=== PATIENT | male | born 1950 | race Caucasian/White ===

== ENCOUNTER → 2016-06-13 | Outpatient (CLI) | payer OTHER ==
[~2016-06-13] MED LIST: ALLO100T PO; AMOX875T PO; ASPCH81X PO; ASPI81TA28 PO; CZR50 PO; ERGO1CAP41 PO; FISHOIL PO; GADAVIST IV PRN; GLC/500 PO; GLC500 PO; INSDGI SC; INSDGIPEN SQ; INSU100I23 SC; INSU1INJ2 SC; INSUINJ14 SC; INSUINJ4 SC; LEVO125T4 PO; LEVO150T9 PO; LIRA18IN SC; LOSA50TA6 PO; NVLGIPEN SC; VYT/1020 PO; VYT1020 PO
--- NOTE | 2016-06-13 15:35 | DIAGNOSTIC IMAGING REPORT ---
MR VENOGRAM OF THE BRAIN CLINICAL HISTORY: Optic nerve edema. COMPARISON STUDY: CT of the brain dated 10/19/2012. FINDINGS: Noncontrast sagittal MR venogram of the brain is performed. 3-D reformats are created and assessed. IV contrast was not administered for this examination. FINDINGS: There is no MRI evidence of dural venous sinus thrombosis. The superior sagittal sinus is widely patent, as are the transverse and sigmoid sinuses. Normal flow voids are maintained in the internal jugular veins. The inferior sagittal sinus is clear, as are the straight sinus and vein of Fletcher. IMPRESSION: Unremarkable MR venogram of the brain. Electronically signed by: Kenroy Harvey M.D. 06/13/2016 3:33 PM Dictated Date/Time: 06/13/2016 3:31 PM
--- NOTE | 2016-06-13 16:37 | DIAGNOSTIC IMAGING REPORT ---
MRI OF THE BRAIN COMBO; MRI OF THE ORBITS COMBO CLINICAL HISTORY: Optic nerve edema. COMPARISON STUDY: CT of the brain dated 10/19/2012. TECHNIQUE: MRI of the brain was performed utilizing various T1 and T2-weighted sequences in the axial, sagittal, and coronal planes. Contrast-enhanced sequences were acquired following the administration of 13 cc of Gadavist. Additional high-resolution imaging through the bony orbits was performed both pre and postcontrast. FINDINGS: Brain parenchyma: There are scattered tiny foci of Endy radiopathic change within the subcortical and periventricular white matter. There is no hemorrhage or mass effect. There is no restricted diffusion to suggest acute ischemia. No enhancing mass lesion is identified on the postcontrast images. Bullard-white matter differentiation is preserved. No extra-axial fluid collection is seen. The cerebellar tonsils are normal in configuration. Ventricles, sulci, and cisterns: Normal in configuration. Pituitary and sella: Unremarkable. Intracranial vasculature: Normal flow voids are maintained at the skull base. Orbits: The bony orbits are grossly intact. The orbital contents are normal in appearance. There is no intra or extraconal mass lesion. The extraocular muscles are normal and symmetric. The optic nerves are normal in morphology and signal intensity. No abnormal enhancement is seen involving the optic nerves. Sinuses and mastoids: There is trace mucosal thickening within the maxillary antra and ethmoid sinuses. The remaining paranasal sinuses and the mastoid air cells are clear. Calvarium: Unremarkable. Cervical cord: Partially visualized cervical spinal cord is normal in morphology and signal intensity. IMPRESSION: 1. No acute intracranial abnormality. 2. Unremarkable MRI assessment of the orbits. Electronically signed by: Kenroy Harvey M.D. 06/13/2016 4:35 PM Dictated Date/Time: 06/13/2016 4:30 PM
== END | disposition home or self-care (01) ==
LOC: C.MRI 14:31
PROVIDERS: ATTEND Ophthalmology
DX: H47.10 Unspecified papilledema (principal)

== ENCOUNTER 2016-08-10 22:25 | Emergency (ER) | payer OTHER ==
[~2016-08-10] VITALS: Ht 170.2 cm; Wt 144.2 kg
[~2016-08-10 22:25] MED LIST changes: -GADAVIST IV PRN; -INSDGI SC; -INSDGIPEN SQ; -INSU100I23 SC; -LEVO150T9 PO; -NVLGIPEN SC
[2016-08-10 22:29] VITALS: TEMP 36.6; Ht 170.2 cm; Wt 144.2 kg
[2016-08-10] MEDS ORDERED: LIDOCAINE HCL 2% JELLY 30 ML TUBE EXT ONE (23:32)
[2016-08-11] MEDS ORDERED: INSDGIPEN SQ (00:12)
[2016-08-11 00:19] VITALS: BP 137/71; PULSE 87; O2SAT 94
--- NOTE | 2016-08-11 05:04 | EMERGENCY ROOM VISIT NOTE ---
ED Visit Note First contact with patient: 23:49 CHIEF COMPLAINT: Leg abrasions that was work-related HISTORY OF PRESENT ILLNESS: This 65-year-old patient presents to the emergency department with friend after falling at work that was work-related sustaining abrasions to his lower legs. The bleeding has stopped. Denies weakness or numbness of the extremity. patient has full range of motion of the extremity The patient rates the pain as mild and 2/10. The patient denies any other injuries. The patient's tetanus shot is up to date. REVIEW OF SYSTEMS: A 6 system review of systems was completed with positives and pertinent negatives listed in the HPI. ALLERGIES: None MEDICATIONS: Reviewed PMH: Diabetes SOCIAL HISTORY: No drug use PHYSICAL EXAM: Vital Signs: Reviewed Nurse's notes, vital signs stable. GENERAL : Pleasant male, in no acute distress, well developed, well nourished. SKIN: There multiple superficial abrasions to bilateral lower legs. No signs of infection. Bilateral legs with full range of motion of the hip, knee and ankle are nontender to palpation. Sensation is intact. There is no foreign material in the wounds and it looks clean. There is no bleeding. No deep structures such as tendons, bones, or significant blood vessels are seen in the base of the wounds. Extension and flexion of the extremity is full and strong. Full range of motion of the extremity. Capillary refill less than 2 seconds. Normal sensation to light and sharp touch. EMERGENCY DEPARTMENT COURSE: I examined the patient. Wounds are cleansed and dressed by nursing. Work-related injury paperwork was filled out and given the fact patient. He was counseled on wound care. He is advised follow-up family medicine in a few days or here in the ER sooner for fevers, drainage, redness, worsening signs or symptoms or as needed. Patient was neurovascularly and neurologically intact. No other injuries are noted. The patient was discharged home in good condition. Differential diagnosis includes abrasion, fracture, laceration, tendon injury, vascular injury and other etiologies were considered. DIAGNOSIS: Bilateral leg abrasions that is a work-related injury DISCHARGE INSTRUCTIONS & TREATMENT: As below Problem List Medical Problems: (1) Diabetes mellitus Status: Chronic Current/Historical Medications Scheduled Aspirin (Aspirin Chewable), 81 MG PO QAM Ergocalciferol (Vitamin D 89642 Unit), 1 TAB PO WK Ezetimibe/Simvastatin (Vytorin 10-20 mg), 1 TAB PO QPM Insulin Glargine (Lantus Solostar), 40 UNITS SQ AMPM Levothyroxine Sodium (Levothyroxine Sodium), 1 TAB PO QAM Liraglutide (Victoza), 1 DOSE SC QAM Losartan Potassium (Cozaar), 50 MG PO QAM Metformin Hcl (Glucophage), 1,000 MG PO BID Allergies Coded Allergies: No Known Allergies (Verified , 08/10/16) Vital Signs Date Time Temp Pulse Resp B/P Pulse Ox O2 Delivery O2 Flow Rate FiO2 08/11/16 00:19 87 18 137/71 94 08/10/16 22:29 36.6 92 18 177/85 95 Room Air Medications Administered Medications (Trade) Dose Ordered Sig/Valdemar Route Start Time Stop Time Status Last Admin Dose Admin Lidocaine HCl (Xylocaine Jelly 2%) 30 ml STK-MED ONCE EXT 08/10/16 23:32 08/10/16 23:35 DC 08/10/16 23:32 30 ML Departure Information Impression Primary Impression: Leg abrasion Additional Impression: Work related injury Dispostion Home / Self-Care Condition GOOD Forms HOME CARE DOCUMENTATION FORM, IMPORTANT VISIT INFORMATION Patient Instructions Formerly [facility], [facility], ED Abrasion Additional Instructions Antibiotic ointment and bandage to the areas until healed. Follow up with family doctor or return for any signs of infection (increasing redness, swelling , drainage, or fever). Keep covered when in sun until fully healed then SPF 50 or higher until scar healed. Problem Qualifiers
[2016-08-24] MEDS ORDERED: INSDGI SC (12:39)
== END 2016-08-11 00:19 | disposition home or self-care (01) ==
LOC: C.EDB 22:26 → C.EDD 08-11 00:19
DX: S80.811A Abrasion, right lower leg, initial encounter (principal); S80.812A Abrasion, left lower leg, initial encounter; W19.XXXA Unspecified fall, initial encounter; Y99.0 Civilian activity done for income or pay; Z79.82 Long term (current) use of aspirin; E11.9 Type 2 diabetes mellitus without complications

== ENCOUNTER → 2016-08-24 | Day surgery (SDC) | payer BC, OTHER ==
[2016-08-10 10:46] VITALS: Ht 172.7 cm; Wt 136.4 kg
[~2016-08-24] VITALS: Ht 172.7 cm; Wt 136.4 kg
[~2016-08-24] MED LIST changes: -AMOX875T PO; -ASPI81TA28 PO; -CZR50 PO; -ERGO1CAP41 PO; +ERGO500011 PO; +FENTANYL CITRATE INJ 50 MCG/1 ML 2 ML VIAL ONE; -FISHOIL PO; -GLC500 PO; +INSDGI SC; +INSDGIPEN SQ; +INSU100I23 SC; -INSU1INJ2 SC; -INSUINJ14 SC; -INSUINJ4 SC; -LEVO125T4 PO; +LEVO125T5 PO; +LEVO150T9 PO; +LIDOCAINE HCL 2% 2 ML VIAL (20MG/ML) ONE; +NVLGIPEN SC; +PROPOFOL IV EMULSION 10 MG/ML 20 ML VIAL IV ONE; -VYT/1020 PO
--- NOTE | 2016-08-24 12:55 | Endo History and Physical ---
History & Physical Date of Service: Aug 24, 2016. Chief Complaint: screening Referring Physician: Dr. Kei Coreas History of Present Illness For colonoscopy Past Medical History Diabetes, Arthritis, Reflux, High Cholesterol, Hypertension Past Surgical History Hx Cardiac Surgery: No Hx Internal Defibrillator: No Hx Pacemaker: No Hx Abdominal Surgery: Yes (UMBILICAL HERNIA REPAIR, HIATAL HERNIA) Hx of Implantable Prosthesis: No Hx Post-Op Nausea and Vomiting: No Hx Cancer Surgery: No Hx Thoracic Surgery: No Hx Orthopedic: Yes (LEFT/RT KNEE ARTHROSCOPY) Hx Urinary Tract Surgery: No Family History None Social History Smoking Status: Never Smoker Hx Substance Use: No Hx Alcohol Use: No Allergies Coded Allergies: No Known Allergies (Verified , 08/10/16) Current Medications Reported Home Medications Medications Dose Route/Sig Max Daily Dose Days Date Category Dose Instructions Lantus (Insulin Glargine) 100 Unit/Ml Inj 40 SC AMPM 08/24/16 Reported Vitamin D 29675 Unit (Ergocalciferol) 50,000 Unit Cap 1 Tab PO WK 08/10/16 Reported EVERY SATURDAY Levothyroxine Sodium 125 Mcg Tab 1 Tab PO QAM 90 08/10/16 Reported Cozaar (Losartan Potassium) 50 Mg Tab 50 Mg PO QAM 08/10/16 Reported Aspirin Chewable (Aspirin) 81 Mg Chew 81 Mg PO QAM 08/10/16 Reported Victoza (Liraglutide) 18 Mg/3 Ml Inj 1 Dose SC QAM 08/10/16 Reported Vytorin 10-20 mg (Ezetimibe/Simvastatin) 1 Tab Tab 1 Tab PO QPM 08/10/16 Reported Glucophage (Metformin Hcl) 500 Mg Tab 1,000 Mg PO BID 08/10/16 Reported Vital Signs Weight (Kilograms): 136.36 Height (Feet): 5 Height (Inches): 8 Date Time Temp Pulse Resp B/P Pulse Ox O2 Delivery O2 Flow Rate FiO2 08/24/16 12:39 36.5 72 20 158/78 97 Room Air Physical Exam General Appearance: + obese Respiratory/Chest: Respiratory effort: no dyspnea Cardiovascular: Heart Auscultation: RRR Abdomen: Inspection & Palpation: soft Assessment and Plan For screening colonoscopy
--- NOTE | 2016-08-24 13:25 | Discharge Instructions ---
Endoscopy Patient Instructions Date / Procedure(s) Performed Aug 24, 2016. Colonoscopy Allergy Information Coded Allergies: No Known Allergies (Verified , 08/24/16) Discharge Date / Findings Aug 24, 2016. Diverticulosis, hemorrhoids, polyps Medication Instructions Stopped Medication(s): took ASA yesterday Restart Stopped Medication(s): resume meds Reported Home Medications Medications Dose Route/Sig Max Daily Dose Days Date Category Dose Instructions Lantus (Insulin Glargine) 100 Unit/Ml Inj 40 SC AMPM 08/24/16 Reported Vitamin D 46714 Unit (Ergocalciferol) 50,000 Unit Cap 1 Tab PO WK 08/10/16 Reported EVERY SATURDAY Levothyroxine Sodium 125 Mcg Tab 1 Tab PO QAM 90 08/10/16 Reported Cozaar (Losartan Potassium) 50 Mg Tab 50 Mg PO QAM 08/10/16 Reported Aspirin Chewable (Aspirin) 81 Mg Chew 81 Mg PO QAM 08/10/16 Reported Victoza (Liraglutide) 18 Mg/3 Ml Inj 1 Dose SC QAM 08/10/16 Reported Vytorin 10-20 mg (Ezetimibe/Simvastatin) 1 Tab Tab 1 Tab PO QPM 08/10/16 Reported Glucophage (Metformin Hcl) 500 Mg Tab 1,000 Mg PO BID 08/10/16 Reported Provider Instructions Activity Restrictions - No exercising or heavy lifting for 24 hours. - Do not drink alcohol the day of the procedure. - Do not drive a car or operate machinery until the day after the procedure. - Do not make any important decisions or sign important papers in 24 hours after the procedure. Following Day: - Return to full activity which may include returning to work/school. Diet Start your diet with liquids and light foods (jello, soup, juice, toast). Then eat your usual diet if not nauseated. Treatment For Common After Affects For mild abdominal pain, bloating, or excessive gas: - Rest - Eat lightly - Lie on right side Follow-Up Information Follow-up with Dr. Kei Coreas as scheduled Anesthesia Information What You Should Know You have had a procedure that required some medicine to reduce anxiety and discomfort. This treatment is called moderate sedation. After receiving the treatment, you may be sleepy, but you will be able to breathe on your own. The effects of the treatment may last for several hours. Follow these instructions along with Activity/Diet recommendations noted above: * Do NOT do anything where dizziness or clumsiness would be dangerous. * Rest quietly at home today, then you can be up and about tomorrow. * Have a responsible person stay with you the rest of today. * You may have had an I.V. today. If so, you may take the dressing off later today. Recommendations Call your doctor if: * Trouble breathing * Continuous vomiting for more than 24 hours * Temperature above 101 degrees * Severe abdominal pain or bloating * Pain not relieved by pain medicine ordered * There is increased drainage or redness from any incision * A large amount of rectal bleeding greater than 2-3 tablespoons. (If you had a polyp/s removed or have hemorrhoids, a small amount of blood - from the rectum is to be expected.) * You have any unanswered questions or concerns. IN THE EVENT OF A SERIOUS EMERGENCY, GO TO THE NEAREST EMERGENCY ROOM Your discharge instructions were prepared by provider Shantanu Christensen. Patient Instructions Signature Page Steffen Bell Patient (or Guardian) Signature/Date: I have read and understand the instructions given to me by my caregivers. Caregiver/RN/Doctor Signature/Date: The above-named patient and/or guardian has received patient instructions on this date. + Original Patient Signature Page (only) stays with chart. Please make copy for patient.
--- NOTE | 2016-08-24 13:36 | GI REPORT ---
Procedure Date: 08/24/2016 12:55 PM Procedure: Colonoscopy Indications: Screening for colorectal malignant neoplasm Medicines: Propofol total dose 200 mg IV, Fentanyl 100 micrograms IV, Lidocaine 40 mg IV Complications: No immediate complications. Estimated Blood Loss: Estimated blood loss was minimal. Procedure: Pre-Anesthesia Assessment: - Prior to the procedure, a History and Physical was performed, and patient medications, allergies and sensitivities were reviewed. The patient's tolerance of previous anesthesia was reviewed. - The risks and benefits of the procedure and the sedation options and risks were discussed with the patient. All questions were answered and informed consent was obtained. After I obtained informed consent, the scope was passed under direct vision. Throughout the procedure, the patient's blood pressure, pulse, and oxygen saturations were monitored continuously. The scope was introduced through the anus and advanced to the cecum, identified by appendiceal orifice and ileocecal valve. The colonoscopy was somewhat difficult due to significant looping. Successful completion of the procedure was aided by applying abdominal pressure. The patient tolerated the procedure well. The quality of the bowel preparation was good. Findings: A 4 mm polyp was found in the transverse colon. The polyp was sessile. The polyp was removed with a cold snare. Resection and retrieval were complete. Estimated blood loss was minimal. A 4 mm polyp was found at the splenic flexure. The polyp was sessile. The polyp was removed with a cold snare. Resection and retrieval were complete. Estimated blood loss was minimal. Non-bleeding internal hemorrhoids were found during endoscopy. The hemorrhoids were moderate. Multiple diverticula were found in the sigmoid colon. Impression: - One 4 mm polyp in the transverse colon, removed with a cold snare. Resected and retrieved. - One 4 mm polyp at the splenic flexure, removed with a cold snare. Resected and retrieved. - Non-bleeding internal hemorrhoids. - Diverticulosis in the sigmoid colon. Recommendation: - Discharge patient to home (ambulatory). - Continue present medications. - Await pathology results. - Return to primary care physician PRN. Shantanu Christensen M.D. Shantanu Christensen MD 08/24/2016 1:36:39 PM This report has been signed electronically. Note Initiated On: 08/24/2016 12:55 PM I attest to the content of the Intraoperative Record and orders documented therein, exceptions below
--- NOTE | 2016-08-24 13:56 | Anesthesiology Progress Note ---
Anesthesia Post Op Note Date & Time Aug 24, 2016 at 13:56 Vital Signs Pain Intensity: 0 Vital Signs Past 12 Hours Date Time Temp Pulse Resp B/P Pulse Ox O2 Delivery O2 Flow Rate FiO2 08/24/16 13:40 68 18 140/69 97 Room Air 08/24/16 13:22 69 18 109/41 97 Room Air 08/24/16 12:39 36.5 72 20 158/78 97 Room Air Notes Mental Status: alert / awake / arousable, participated in evaluation Pt Amnestic to Procedure: Yes Nausea / Vomiting: adequately controlled Pain: adequately controlled Airway Patency, RR, SpO2: stable & adequate BP & HR: stable & adequate Hydration State: stable & adequate Anesthetic Complications: no major complications apparent Pt doing well.
[2016-08-24 14:05] VITALS: BP 129/86; PULSE 68; O2SAT 98
== END | disposition home or self-care (01) ==
LOC: C.GI 12:08
PROVIDERS: ATTEND Internal Medicine Gastroenterology
DX: Z12.11 Encounter for screening for malignant neoplasm of colon (principal); D12.3 Benign neoplasm of transverse colon; K64.8 Other hemorrhoids; K57.30 Diverticulosis of large intestine without perforation or abscess without bleeding

== ENCOUNTER 2016-12-30 00:58 | Emergency (ER) | payer OTHER ==
[~2016-12-30] VITALS: Ht 172.7 cm; Wt 141.4 kg
[~2016-12-30 00:58] MED LIST changes: -ALLO100T PO; +ERGO1CAP41 PO; -ERGO500011 PO; -FENTANYL CITRATE INJ 50 MCG/1 ML 2 ML VIAL ONE; -INSDGIPEN SQ; -INSU100I23 SC; +LEVO125T4 PO; -LEVO125T5 PO; -LEVO150T9 PO; -LIDOCAINE HCL 2% 2 ML VIAL (20MG/ML) ONE; -NVLGIPEN SC; -PROPOFOL IV EMULSION 10 MG/ML 20 ML VIAL IV ONE
[2016-12-30 01:03] VITALS: TEMP 36.9; Ht 172.7 cm; Wt 141.4 kg
[2016-12-30] MEDS ORDERED: LEVO150T9 PO (01:55)
[2016-12-30] MEDS ORDERED: ALLO100T PO (01:57)
[2016-12-30] MEDS ORDERED: NVLGIPEN SC (01:58)
[2016-12-30] MEDS ORDERED: INSU100I23 SC (01:59)
--- NOTE | 2016-12-30 02:25 | EMERGENCY ROOM VISIT NOTE ---
History Report prepared by Isac: Magdaleno Sher Under the Supervision of: Dr. Allyson Anderson D.O. First contact with patient: 01:14 Chief Complaint: HYPOGLYCEMIA Stated Complaint: HYPOGLYCEMIA Nursing Triage Summary: pt brought to ed via ems from home. pts girlfriend woke up to pt laying in bed cold and diaphoretic. she checked his sugar and it was 54. oral glucose given. when ems arrived bsg was 44 250ml d10 given then bsg increased to 114. pt reports his bsg was 112 last night nad he took his metformin and night time insulin. pt denies any symptoms at present. History of Present Illness The patient is a 66 year old male who presents to the Emergency Room by EMS with complaints of resolved hypoglycemia beginning shortly prior to arrival. Per nursing notes, the patient's girlfriend woke up and noticed that the patient appeared cold and diaphoretic in bed. She checked his blood sugar and found it to be 54. EMS noted the patient's blood sugar to be 44 on scene. The patient was given oral glucose, as well as D10 en route which have improved his blood sugar. His BSG upon arrival was 109. The patient states that he took his daily long-acting insulin shot when his blood sugar was 112 tonight, which he believes resulted in his hypoglycemia. He took his Metformin as normal tonight. Per girlfriend, the patient took his Novolog shot several hours after eating, and then took his long acting insulin shot immediately before going to bed. She states that the patient had some problems speaking when she initially woke him up. The patient states that he currently feels normal. He denies any recent changes to his medication. He denies any chest pain, nausea, headache, or abdominal pain. Source of History: patient Onset: Shortly prior to arrival Symptom Intensity: BSG of 44 Quality: other (hypoglycemia) Timing: resolved Modifying Factors (Relieving): other (oral glucose and D10) Associated Symptoms: + diaphoresis, No headache, No chest pain, No nausea, No abdominal pain Review of Systems See HPI for pertinent positives & negatives. A total of 10 systems reviewed and were otherwise negative. Past Medical & Surgical Medical Problems: (1) Cellulitis and abscess of lower extremity (2) Diabetes mellitus Family History No pertinent family history stated. Social History Smoking Status: Never Smoker Alcohol Use: none Drug Use: none Marital Status: , in relationship Housing Status: lives with family Occupation Status: employed Current/Historical Medications Scheduled Allopurinol (Zyloprim), 100 MG PO DIRECTED Aspirin (Aspirin Chewable), 81 MG PO QAM Ergocalciferol (Vitamin D 46767 Unit), 1 TAB PO WK Ezetimibe/Simvastatin (Vytorin 10-20 mg), 1 TAB PO QPM Insulin Aspart (Novolog Flexpen), Unknown Dose SC DIRECTED Insulin Glargine (Lantus), 45 SC AMPM Insulin Glargine (Basaglar Kwikpen), Unknown Dose SC DIRECTED Levothyroxine Sodium (Levothyroxine Sodium), 1 TAB PO DAILY Liraglutide (Victoza), 1 DOSE SC QAM Losartan Potassium (Cozaar), 50 MG PO QAM Metformin Hcl (Glucophage), 1,000 MG PO BID Allergies Coded Allergies: No Known Allergies (Verified , 12/30/16) Physical Exam Vital Signs Date Time Temp Pulse Resp B/P (MAP) Pulse Ox O2 Delivery O2 Flow Rate FiO2 12/30/16 02:42 75 20 138/69 96 12/30/16 01:47 83 16 151/58 96 Room Air 12/30/16 01:40 73 16 153/64 96 Room Air 83 151/58 75 160/69 12/30/16 01:03 71 12/30/16 01:03 36.9 78 20 134/61 96 Room Air Physical Exam GENERAL: Obese, alert, well appearing, well nourished, no distress, non-toxic EYE EXAM: normal conjunctiva, PERRL and EOM's grossly intact OROPHARYNX: no exudate, no erythema, lips, buccal mucosa, and tongue normal and mucous membranes are moist. Poor dentition. NECK: supple, no nuchal rigidity, no adenopathy, non-tender LUNGS: Clear to auscultation. Normal chest wall mechanics HEART: no murmurs, S1 normal and S2 normal ABDOMEN: abdomen soft, non-tender, normo-active bowel sounds, no masses, no rebound or guarding. BACK: Back is symmetrical on inspection and there is no deformity, no midline tenderness, no CVA tenderness. SKIN: no rashes and no bruising UPPER EXTREMITIES: upper extremities are grossly normal. LOWER EXTREMITIES: No pitting edema. NEURO EXAM: Normal sensorium, cranial nerves II-XII grossly intact, normal speech, no gross weakness of arms, no gross weakness of legs. Medical Decision & Procedures Laboratory Results Test 12/30/16 01:41 Bedside Glucose 107 mg/dl (70-99) Laboratory results per my review. ECG Indication: other (hypoglycemia) Rate (beats per minute): 74 Rhythm: normal sinus Findings: no acute ischemic change, no ectopy, other (Normal axis. Normal intervals. ) ED Course 0126: The patient was evaluated in room B7. A complete history and physical exam was performed. 0235: Upon reevaluation, the patient is feeling better. I discussed the findings and the treatment plan with the patient. He verbalizes agreement and understanding. The patient was discharged home. Medical Decision Differential diagnosis includes but is not limited to: hypoglycemia, medication reaction, stroke, dysrhythmia, seizure, electrolyte abnormality, and infection. Patient ate at an abnormal time and then took his usual insulin from supper closer to bedtime without having any additional snack. Patient's level mentation improved once his hypoglycemia was corrected. Patient has a baseline here now according to family. Patient with a normal nonfocal neurologic exam at bedside, and no complaints. EKG orthostatics reassuring. Did not feel patient warranted additional neuro imaging or evaluation for stroke. Likely patient's symptoms related to his hypoglycemic event. Discussed close follow-up , use of medications, adequate oral intake, risk factors for being a diabetic, symptoms to watch and return for, he and family at bedside verbalized understanding were agreeable with plan. Impression Primary Impression: Hypoglycemia Scribe Attestation The scribe's documentation has been prepared under my direction and personally reviewed by me in its entirety. I confirm that the note above accurately reflects all work, treatment, procedures, and medical decision making performed by me. Departure Information Dispostion Home / Self-Care Referrals No Doctor, Assigned (PCP) Patient Instructions My [facility] Additional Instructions Please take your medications as prescribed. Please check your blood sugar regularly and eat and drink at regular intervals. If you develop any recurrent episodes of low blood sugar, develop escalating or high blood sugar, feel dizzy or lightheaded, headaches, develop nausea or vomiting, chest pain, trouble breathing, or you've any other new or concerning symptoms, please return to the ER immediately.
[2016-12-30 02:42] VITALS: BP 138/69; PULSE 75; O2SAT 96
== END 2016-12-30 02:50 | disposition home or self-care (01) ==
LOC: EDBD 00:58 → C.EDB 00:59
DX: E16.2 Hypoglycemia, unspecified (principal); E11.9 Type 2 diabetes mellitus without complications; Z79.82 Long term (current) use of aspirin; Z79.4 Long term (current) use of insulin

== ENCOUNTER → 2017-06-15 | Outpatient (CLI) | payer OTHER ==
[~2017-06-15] MED LIST changes: +ALLO100T PO; -ERGO1CAP41 PO; +ERGO500011 PO; +INSU100I23 SC; -LEVO125T4 PO; +LEVO150T9 PO; +NVLGIPEN SC
--- NOTE | 2017-06-16 05:36 | PAP/PSG TECHNICIAN REPORT ---
[facility] Neuroradiologist Polysomnogram Report Study name: None Report date: 06/16/2017 Study date: 06/15/2017 Referring Physician: Alfreda SEGOVIA Name: HARPREET KUMAR Interpreting Physician: Lorne Lawrence D.O. Date of : 1950 Neuroradiologist: FRANK Carrington. Sex: Male Age: 66 Study Type: PSG Weight: 326 lbs Height: 66 years, Height 5' 8" BMI: 49.56 Medications: BASAGLAR KWIKPEN 100 UNIT/ML, METFORMIN 1000 MG, LANTUS, LEVOTHYROXINE 150 MCG, VIT D 71155 UNITS, ALLOPURINOL 100 MG, ASPIRIN 81 MG, COZAAR 50 MG, FISH OIL, FONASE, VYTORIN 10-20 MG Patient History 66 yr-old male here for a baseline/split study. He has a history of loud snoring. He holds a CDL license. His [place] scale is 12. The test was started on room air. ETCO2 testing was not utilized during this study. Room 1 Parameters Monitored NPSG: E1-M2, E2-M1, Fp1-M2, Fp2-M1, F3-M2, F4-M2, F4-M1, C3-M2, C4-M2, C4-M1, O1-M2, O2-M2, O2-M1, T3-M2, T4-M1, P3-M2, P4-M1, CHIN1, CHIN2, HR, EKG, Legs, PFLOW, SNOR, FLOW, CFLOW, Tidal Volume, THOR, ABDO, SpO2, PLTH, CPRESS, ETCO2 Wave, ETCO2, pH Sleep Architecture Sleep Stages Time at Lights Off 9:35:37 PM STAGES Time (min.) TST (%) Time at Lights On 5:23:07 AM Wake 74.5 -- Total Recording Time (TRT) 467.50 min. N1 67.0 17 Total Sleep Period (TSP) 451.0 min. N2 264.0 67 Total Sleep Time (TST) 393.0min. N3 0.0 0 Awake Time 74.5 min. REM 62.0 16 Wake after Sleep Onset 72.0 min. Sleep Efficiency (SE) 84 % Sleep Onset Latency (CORETTA) 2.5 min. Number of Stage 1 Shifts None Awakenings 27 Stage Changes 113 Number of REM periods 6 REM 62.0 16 REM Latency 138.5 min. NREM 331.0 84 Body Position Analysis Supine Right Left Side Prone Vertical Total Sleep Time (min.) 33.1 366.3 0.0 366.32 0.0 1.7 Total Sleep Time (%) 7% 93% 0% 93 0% N/A% Total Sleep Time REM (min.) 0.0 62.0 0.0 None 0.0 0.0 Total Sleep Time NREM (min.) 26.7 304.3 0.0 None 0.0 0.0 Intermittent Wake (min.) 6.5 66.3 0.0 None 0.0 1.7 Total Sleep Period (%) 7% None None None None None Arousals Myoclonus (PLM) * Events Count Index Events Count Index Spontaneous 18 3 Events Awake (PLMW) 103 83.0 Respiratory 27 4.1 Events Asleep w/ Arousal (PLMA) 17 2.6 PLM 16 3 Events Asleep w/o Arousal (PLMS) 161 24.6 Snoring 15 2 Total Asleep 178 27.2 Total 76 12 Total 281 36 Respiratory Analysis * CA OA MA CH H RERA Total Count 0 7 0 0 58 9 65 Index 0.0 1.1 0.0 0 8.9 1 11.3 Mean Duration 0.0 16.0 0.0 0.00 17.0 17.9 17.0 Longest Duration 0.0 30.4 0.0 0.00 0.0 21.9 42.5 Respiratory Event Summary Total Supine ~Supine Right Left Prone REM NREM Apneas Count 7 4 3 3 N/A N/A 1 6 Index 1.1 9 0 0.5 N/A N/A 1 1 Hypopneas (4% Desat) Count 58 20 38 38 N/A N/A 20 38 Index 8.9 45.0 6 6.2 N/A N/A 19.4 6.9 Apneas & All Hypopneas Count 65 24 41 41 N/A N/A 21 44 Index 9.9 54 7 7 N/A N/A 20.3 8.0 Respiratory Events (P[employer] Network Technician+All Hyp+RERA) Count 65 26 48 48 N/A N/A 21 44 Index 11.3 58 8 7.9 N/A N/A 23.2 9.1 Respiratory Related Arousal Count 27 26 16 16 N/A N/A 7 20 Index 4.1 25 3 3 N/A N/A 7 4 Snoring Analysis Supine Right Left Prone REM NREM Total Snore duration 36.5 min Snores count 93 1,702 N/A N/A 458 1,337 1,795 Snore mean duration 1.2 Sec Snores index 209 279 N/A N/A 443.2 242.4 274.0 TST with snoring (%) 9.3% Desaturation Event Summary: Minimum %SpO2 Event Count Mean/Min/Max Duration(sec.) Desaturation Index % Time In Bed > 90 102 23.3 / 7.5 / 53.0 15.1 90.4 86 - 90 4 21.9 / 12.8 / 25.5 5.8 9.2 81 - 85 0 N/A 0.0 0.4 76 - 80 0 N/A 0.0 0.0 71 - 75 0 N/A 0.0 0.0 66 - 70 0 N/A 0.0 0.0 61 - 65 0 N/A 0.0 0.0 56 - 60 0 N/A 0.0 0.0 51 - 55 0 N/A 0.0 0.0 < 50 0 N/A 0.0 0.0 Total REM NREM Awake <50% 0.0 min. 0.0 min. 0.0 min. 0.0 min. 51 - 60% 0.0 min. 0.0 min. 0.0 min. 0.0 min. 61 - 70% 0.0 min. 0.0 min. 0.0 min. 0.0 min. 71 - 80% 0.0 min. 0.0 min. 0.0 min. 0.0 min. 81 - 90% 43.3 min. 18.5 min. 20.6 min. 4.1 min. 91 - 100% 405.8 min. 43.4 min. 309.9 min. 52.5 min. Average 93 92 93 93 Minimum SpO2 81 86 85 81 Desaturation Event Index 13.2 30.0 10.0 13.7 # Desat. Events below 89% 24 9 11 4 Time(%) with Saturation below 89% 1.4 0.6 0.2 0.6 Time(min.) with Saturation below 89% 6.5 2.8 1.0 2.7 Time (mins) REM (mins) NREM (mins) % of TST SpO2 Below 90% 51 24 N27 3.3 SpO2 Below 88% 8 0 0 0 Heart Rate Analysis Min (bpm) Max (bpm) Average (bpm) Awake 51 281 69 NREM 49 127 59 REM 48 83 59 Overall 48 127 59 Supplemental O2 Values Minimum O2 level: None Value Start Time End Time Neuroradiologist Comments Mr. Kumar slept in the right and supine positions. No cardiac arrhythmias were noted. PLMs were noted. No bruxism noted. Snoring was noted and scored as a 2-3 on a scale of 1 through 5. (0=no snoring, 5=snoring loud enough to be heard through a closed door or down the sauer way) He did not meet specific Split-Night criteria during the diagnostic portion of this study. He awoke to use the restroom two times during the night. Mr. Kumar stated that he slept about the same as usual. The final report will be interpreted and signed by a sleep physician. The completed physician report will then be placed in the patient medical record. Therapy (cm H2O) 0 TIB (min.) 467.5 TST (min.) 393.0 Sleep Onset (min.) 2.5 REM Onset From Sleep (min.) 138.5 Sleep Efficiency % 84 Wakefulness (%) 16 Wakefulness (min.) 74.5 NREM 1 (%) 17 NREM 1 (min.) 67.0 NREM 2 (%) 67 NREM 2 (min.) 264.0 NREM 3 (%) 0 NREM 3 (min.) 0.0 REM (%) 16 REM (min.) 62.0 # Arousals 76 Arousal Index 12 # Snore 1,795 Snore Index 274.0 AHI 9.9 AHI Supine 54 AHI Non-Supine 7 NREM AHI 8.0 REM AHI 20.3 RDI 11.3 # Obstructive Apnea 7 # Central Apnea 0 # Mixed Apnea 0 # Hypopneas 58 RERAs 9 Total Respiratory Events 74 Time Below SpO2 89% (min.) 3.8 Mean NREM SpO2 (%) 93 Mean REM SpO2 (%) 92 Mean Sleep SpO2 (%) 92 Min NREM SpO2 (%) 85 Min REM SpO2 (%) 86 Position Supine (min.) 33.1 Position Non-supine (min.) 366.3 LM Index Sleep 27.2 LM Index NREM 27.0 LM Index REM 28.1 Mean Heart Rate (bpm) 59 Min Heart Rate (bpm) 48
--- NOTE | 2017-06-18 10:20 | Sleep Study ---
Sleep Study Report Date of Service: 06/15/2017 Sleep Study Report CLINICAL DATA: The patient is a 66-year-old male who has a BMI of 49.56. He has a history of loud snoring. 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 He completed the [place] Sleepiness Scale and has a score of 12 out of a possible 24. This was an in-lab overnight polysomnography. SLEEP ARCHITECTURE: The total sleep period was 451 minutes. The total sleep time was 393 minutes. The sleep efficiency was mildly reduced to 84 percent. The sleep latency was normal at 2.5 minutes. Wake after sleep onset was mildly prolonged at 72 minutes. The REM latency was mildly prolonged at 138.5 minutes. Sleep consisted of stage N1 17 percent, stage N2 67 percent, stage N3 0 percent, stage REM 16 percent. AROUSAL DATA: The patient had a total of 76 arousals including 18 spontaneous arousals, 27 respiratory arousals, 16 PLM arousals, and 15 snoring arousals. The arousal index was 12. PLM DATA: The patient had a total of 178 periodic limb movements for a PLM index of 27.2. There were 17 arousals associated with limb movements for a PLM arousal index of 2.6. EKG: The underlying cardiac rhythm was normal sinus. The cardiac rates 48-83 beats per minute. The average heart rate was 59 beats per minute. No cardiac arrhythmia was noted. RESPIRATORY DATA: The patient had a total of 65 respiratory events including 7 obstructive apneas and 58 hypopneas. Hypopneas were scored according to the 4 percent desaturation rule. The longest apnea was 30.4 seconds. The mean duration of the hypopneas was 17 seconds. In addition there were 9 RERAs. The apnea- hypopnea index was mildly elevated at 9.9 events per hour. OXIMETRY DATA: The average saturation for the night was 93 percent. The minimum saturation was 81 percent. There was a total of 6.5 minutes with saturations less than 89 percent. 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 No cardiac arrhythmias were noted. PLMS were noted. No bruxism noted. Snoring was noted and scored as a 2-3 on a scale of 1 through 5. He did not meet specific split night criteria during the diagnostic portion of the study. He awakened to use the restroom 2 times during the night. IMPRESSIONS: 1. Mild obstructive sleep apnea COMMENTS: The patient had a mild decrease in sleep efficiency. The sleep architecture was mildly abnormal. He had a modest number of limb movements but with few arousals. He has mild sleep apnea with an apnea-hypopnea index of 9.9. Consideration could be given to treatment with nasal CPAP. RECOMMENDATIONS: 1. Consideration is given to a trial of nasal CPAP. 2. Weight loss is advised in light of the elevation of body mass index of 49.56. 3. The patient should be advised the appropriate principles of sleep hygiene including having a regular sleep-wake schedule and allowing approximately 7.5 hours of sleep per night. 4. The patient should avoid sleeping in the supine position. Typically there is more respiratory events supine and indeed his apnea-hypopnea index while supine was 54. It should be noted that he was only in the supine position for 7 percent of the night. Copies To 1: Lorne Lawrence DO; Alfreda Turcios
== END | disposition home or self-care (01) ==
LOC: C.NEUR 20:00
PROVIDERS: ATTEND Nurse Practitioner Family
DX: G47.33 Obstructive sleep apnea (adult) (pediatric) (principal)

== ENCOUNTER → 2017-12-16 | Outpatient (CLI) | payer OTHER ==
--- NOTE | 2017-12-16 14:35 | DIAGNOSTIC IMAGING REPORT ---
L KNEE 4 OR MORE VIEWS CLINICAL HISTORY: Left knee pain COMPARISON: None. DISCUSSION: There are osteoarthritic changes present with moderate medial joint compartment narrowing. There are small dorsal patellar spurs. There are no acute fractures. There is a suprapatellar joint effusion. No destructive lesions are evident. IMPRESSION: 1. No acute fractures 2. Moderate osteoarthritic change. Suspected joint effusion. Electronically signed by: Cristino Bennett M.D. 12/16/2017 2:34 PM Dictated Date/Time: 12/16/2017 2:33 PM
== END | disposition home or self-care (01) ==
LOC: C.RAD1850 14:06
PROVIDERS: ATTEND Family Medicine
DX: M25.562 Pain in left knee (principal)

== ENCOUNTER → 2017-12-26 | Outpatient (CLI) | payer OTHER ==
[2017-12-26 09:24] LABS: BASO % 0.6 %; BASO ABS # 0.04 K/uL (0-0.2); EOS % 3.8 %; EOS ABS # 0.26 K/uL (0-0.5); HEMATOCRIT 39.7 % (42-52); HEMOGLOBIN 12.9 g/dL (14.0-18.0); IG# 0.01 K/uL (0.00-0.02); LYMPH % 39.4 %; LYMPH ABS # 2.68 K/uL (1.2-3.4); MEAN CELL VOLUME 93.9 fL (80-100); MEAN CORPUSCULAR HEMOGLOBIN 30.5 pg (25-34); MEAN CORPUSCULAR HGB CONC 32.5 g/dl (32-36); MEAN PLATELET VOLUME 11.2 fL (7.4-10.4); MONO % 7.4 %; NEUT % 48.7 %; NEUT ABS # 3.31 K/uL (1.4-6.5); PLATELET COUNT 212 K/uL (130-400); RED CELL DISTRIBUTION WIDTH CV 14.4 % (11.5-14.5); RED CELL DISTRIBUTION WIDTH SD 49.1 fL (36.4-46.3)
[2017-12-26 09:51] LABS: ALBUMIN 3.7 gm/dl (3.4-5.0); BLOOD UREA NITROGEN 30 mg/dl (7-18); CALCIUM 8.7 mg/dl (8.5-10.1); CARBON DIOXIDE 25 mmol/L (21-32); CREATININE 1.43 mg/dl (0.60-1.40); GLUCOSE 129 mg/dl (70-99); POTASSIUM 4.5 mmol/L (3.5-5.1); SODIUM 139 mmol/L (136-145)
== END | disposition home or self-care (01) ==
LOC: C.LAB1850 08:45
PROVIDERS: ATTEND Internal Medicine Nephrology
DX: N18.3 Chronic kidney disease, stage 3 (moderate) (principal)

== ENCOUNTER → 2017-12-27 | Outpatient (CLI) | payer OTHER | END | disposition home or self-care (01) | LOC: C.LAB1850 10:12 | PROVIDERS: ATTEND Internal Medicine Nephrology | DX: N18.3 Chronic kidney disease, stage 3 (moderate) (principal) ==